=== PATIENT | male | born 1975 | race Two or more races ===

== ENCOUNTER 2020-01-10 11:00 | Emergency (ER) | payer OTHER ==
[~2020-01-10] VITALS: Ht 167.6 cm; Wt 78.4 kg
[2020-01-10 11:05] VITALS: BP 148/99
[2020-01-10] MEDS ORDERED: DIAZEPAM 5 MG TABLET ONE (11:26)
[2020-01-10] MEDS ORDERED: KETOROLAC 60 MG/2 ML ONE (11:26)
[2020-01-10] MEDS ORDERED: KETOROLAC 30 MG/1 ML IM ONE (11:30)
[2020-01-10] MEDS ORDERED: DIAZEPAM 5 MG TABLET PO ONE (11:30)
== END 2020-01-10 12:47 | disposition home or self-care (01) ==
LOC: ED 12:43
DX: G44.219 Episodic tension-type headache, not intractable (principal); I10 Essential (primary) hypertension
CPT/HCPCS: 96372; 99283; J1885